=== PATIENT | male | born 1985 | race Caucasian/White ===

== ENCOUNTER 2019-10-28 11:52 | Inpatient (IN) | payer OTHER, SELFPAY ==
[2019-10-28] VITALS (14 sets, daily range): BP systolic 90–126; BP diastolic 43–92; PULSE 75–164; RESP 15–24; TEMP 36.6–36.7; O2SAT 95–99; BMI 41.1
--- NOTE | 2019-10-28 12:05 | ECG_ITS ---
Measurements Intervals [place] Rate: 174 P: SD: 0 QRS: 29 QRSD: 85 T: 185 QT: 275 QTc: 469 Interpretive Statements ATRIAL FIBRILLATION WITH RAPID VENTRICULAR RESPONSE LEFT VENTRICULAR HYPERTROPHY WITH ST-T CHANGE ST-T WAVE ABNORMALITY IN ANTEROLAT/LAT LEADS- CONSIDER ISCHEMIA ABNORMAL ECG Electronically Signed On 10-28-2019 15:20:42 PIPE BLANKS CUT OFF SAW OPERATOR by Remy Sanabria D.O.
--- NOTE | 2019-10-28 12:16 | ED.ARRPALP ---
HPI - Arrhythmia/Palpitations General Chief Complaint: Arrhythmia/Palpitations Stated Complaint: im in afibb Time Seen by Provider: 10/28/19 12:05 History of Present Illness HPI narrative: Pt is a 33 y/o male presenting to the ED c/o palpitations. 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 Pt states he has a Hx of A Fib and states he takes Metoprolol. Pt states he regularly takes his Metoprolol and last took a dose an hour ago when his Sx's presented. 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 Pt states he was admitted during his first occurrence of A Fib for 1 day and has never received Cardioversion to convert. Pt also reports mild CP describes as pressure, but denies dizziness or SOB. Pt states he is not currently on a blood thinner, but is taking low dose Aspirin. Pt denies having any other medical problems. Onset (ago): hour(s) (1) Arrhythmia history: atrial fibrillation Associated symptoms: chest pain (Mild) Treatments prior to arrival: beta-faith (Metoprolol) Related Data Home Medications Medication Instructions Recorded Confirmed metoprolol tartrate [Lopressor] 50 mg PO BID 10/28/19 10/28/19 montelukast [Singulair] 10 mg PO HS 10/28/19 10/28/19 pantoprazole [Protonix] 20 mg PO QAM 10/28/19 10/28/19 Allergies Allergy/AdvReac Type Severity Reaction Status Date / Time No Known Allergies Allergy Verified 10/28/19 12:04 Review of Systems Review of Systems: All systems reviewed & are unremarkable except as noted in HPI and below Cardiovascular: Cardiovascular: Reports chest pain and Reports palpitations Respiratory: Respiratory: Denies dyspnea Neurologic: Denies dizziness PMFSH Past Medical History Medical History A-fib GERD (gastroesophageal reflux disease) Surgical History Surgical History H/O hand surgery Rt History of tonsillectomy Social History Social History Smoking status: Current every day smoker Tobacco type: e-cigarettes Gender identity (if verbalized by the patient): Male Exam Const: General: healthy appearing, no acute distress and alert Nutritional Appearance: well nourished HENMT: Mouth: Yes lip normal Eyes: Conjunctivae: conjunctivae normal Resp: Effort & Inspection: normal respiratory effort Auscultation: wheezes (Scattered) Cardio: Rate: tachycardic Rhythm: abnormal rhythm (Irregularly irregular) Back/Spine/Pelvis: Other: Full ROM Skin: General skin exam: normal color Other: Warm; Dry Neuro: General: patient oriented x3 Speech: normal speech Extrem: General: full ROM Psych: Mental Status: mental status grossly normal Affect: normal affect Course Vital Signs Vital signs: Vital Signs Temperature 36.7 C 10/28/19 11:58 Pulse Rate 157 H 10/28/19 11:58 Respiratory Rate 22 H 10/28/19 11:58 Blood Pressure 126/68 10/28/19 11:58 Pulse Oximetry 98 10/28/19 11:58 Temperature 36.7 C 10/28/19 11:58 Pulse Rate 82 10/28/19 15:53 Respiratory Rate 18 10/28/19 15:53 Blood Pressure 97/43 L 10/28/19 15:53 Pulse Oximetry 98 10/28/19 15:53 MDM - Arrhythmia/Palpitations MDM Narrative Medical decision making narrative: EKG shows A-fib w/ RVR. given bolus of diltiazem and drip started. Rate moderately well controlled. Troponin elevated. Will plan for admission and cardiology consultation. Differential Diagnosis Differential diagnosis: Likely sinus tachycardia, artial fibrillation, artial flutter, supraventricular tachycardia and other (NSTEMI) Medical Records Attestation: I reviewed the patient's medical records. Lab Data Attestation: I reviewed the patient's lab results. Result diagrams: 10/28/19 12:06 10/28/19 12:06 Labs: Lab Results 10/28/19 10/28/1910/15
[2019-10-28 12:19] LABS: Basophils Percent Auto 0.3 % (0.2-1.2); Eosinophils Absolute Auto 0.2 K/mm3 (0-0.3); Eosinophils Percent Auto 1.7 % (0-4.4); Hematocrit 46.9 % (42.0-52.0); Hemoglobin 15.7 g/dL (14.0-18.0); Immature Granulocyte Absolute 0.05 K/mm3 (0.00-0.031); Immature Granulocyte Percent A 0.5 % (0-0.5); Lymphocytes Absolute Auto 2.74 K/mm3 (0.9-3.2); Lymphocytes Percent Auto 27.2 % (18.3-44.2); Mean Corpuscular HGB Conc 33.5 g/dl (32-36); Mean Corpuscular Hemoglobin 28.3 pg (26-34); Mean Corpuscular Volume 84.5 fl (80-100); Mean Platelet Volume 9.2 fl (7.4-10.4); Monocytes Absolute Auto 0.9 K/mm3 (0.1-0.6); Monocytes Percent Auto 8.8 % (2.6-8.5); Neutrophils Absolute Auto 6.2 K/mm3 (1.3-6.7); Neutrophils Percent Auto 61.5 % (45.5-73.1); Platelet Count Result 294 k/mm3 (150-375); Red Blood Count 5.55 M/mm3 (4.6-6.20); Red Cell Distribution Width 12.7 % (11.5-14.5); White Blood Count 10.1 K/mm3 (4.5-10.0)
[2019-10-28 12:32] LABS: Partial Thromboplastin Time 30.8 SECONDS (22.3-36.8); Prothrombin Time 12.6 Seconds (11.1-14.7)
[2019-10-28 12:39] LABS: Blood Urea Nitrogen 18 mg/dL (9-20); Calcium 9.4 mg/dL (8.4-10.2); Carbon Dioxide 29 mmol/L (22-30); Chloride 101 mmol/L (98-107); Estimated CRCL calculation 117 ml/min; Estimated Glomerular Filt Rate > 60; Glucose 96 mg/dL (75-110); Potassium 3.7 mmol/L (3.4-5.0); Sodium 142 mmol/L (137-145)
[2019-10-28 12:53] LABS: Troponin I 0.061 ng/mL (0.000-0.034)
[2019-10-28] MEDS: ASPIRIN 81 MG CHEWABLE TABLET 324 MG PO (12:57)
[2019-10-28] MEDS: SODIUM CHLORIDE 0.9% IV 1,000 ML 999 ML IV CONT (12:59)
[2019-10-28] MEDS: ENOXAPARIN 120 MG/0.8 ML SYRINGE SUB-Q (14:30)
--- NOTE | 2019-10-28 16:19 | ADMGEN ---
This patient, Antwan Downey, was admitted to IMU Room 214-01. Patient/family oriented to hospital policies and general routines including ID bracelet, bed and alarms, visiting hours, pain management, procedures, bathroom and other care routines, personal items, smoking policy, room service/diet, and visiting hours. Valuables list has been completed. Information on how to activate the Rapid Response Team has been discussed. Patient/Family are encouraged to report perceived risks to care and to ask questions if they do not understand what they are told or what they should do.
--- NOTE | 2019-10-28 16:21 | ECG_ITS ---
Measurements Intervals [place] Rate: 72 P: 42 UT: 181 QRS: 38 QRSD: 84 T: 179 QT: 411 QTc: 452 Interpretive Statements SINUS RHYTHM LEFT VENTRICULAR HYPERTROPHY AND ST-T CHANGE ST-T WAVE ABNORMALITY IN ANTEROLAT/LAT LEADS- CONSIDER ISCHEMIA ABNORMAL ECG Electronically Signed On 10-28-2019 17:16:28 VISITING HOUSEKEEPER by Remy Sanabria D.O.
--- NOTE | 2019-10-28 16:43 | PM.CNCAR ---
Assessment and Plan Additional Plan 33-year-old patient with paroxysmal atrial fibrillation likely triggered by untreated/partially treated sleep apnea. In addition to this the patient was having a stressful day at work and had not taken his beta-faith this morning. The patient had the idea that his evaluation and [facility] demonstrated as some sort of valvular abnormality. The records which I was able to fortunately review on the electronic record indicates normal appearing valve anatomy with trivial mitral and tricuspid regurgitant jets. His LV function was hyperdynamic. I would resume the metoprolol at the previous dosage of 50 mg daily He does not require systemic anticoagulation at age 33 with no structural cardiac abnormalities I will stop IV diltiazem since he is back in sinus rhythm If his 2nd troponin level is not significantly elevated I believe he can probably be allowed to go home since he is already back in sinus rhythm. It will be a good idea if he discontinues exposure to nicotine as well History of Present Illness History of Present Illness Consult date/time: Date of service: 10/28/19 16:43 Consult reason: atrial fibrillation Reason For Visit: afib w/rvr/elevated troponin Narrative: This is a 33-year-old man I am seeing at the request of the hospitalist because of atrial fibrillation. The patient is unknown to me prior to this encounter. 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 There was therefore a rather stressful environment he and he noticed at around late morning or possibly the new lower that he was having rapid irregular heart rhythms. The patient has a history of atrial fibrillation in the past and he recognized this as up probable recurrence. He was supposed to be taking metoprolol for this arrhythmia and remember that he did not take this morning's dose yet so he took the dose and sat down for a while hoping that it would resolve. With a did not he came over to this hospital's emergency room to be evaluated. He was found by ECG to be in AFib with RVR and of course was given intravenous diltiazem for rate control. As his heart rate came down a short time ago before he got up to the room in the intermediate care unit he felt that his cardiac rhythm normalized. On physical exam and on telemetry I as I came in to see him he is clearly in normal sinus rhythm. He is very comfortable at this time and has no other complaints. The patient indicated as stated above that he has a history of atrial fibrillation. This occurred in the summer he was hospitalized at [facility] and seen by the Cardiology practice up there. He describes having had an evaluation and was told that there was a enlarged valve of some sort in his heart. For that reason I looked on the electronic medical record and see that there is a transesophageal echo that was done in March of 2017 that demonstrated some left ventricular hypertrophy, normal appearing cardiac valves and trivial MR and TR. The patient also is significantly obese and states that at the time of his IA results of found to have sleep apnea. He had sleep studies and has a CPAP device that he is semi compliant with he states he sometimes does not use it every night and sometimes he finds himself feeling claustrophobic and take the mask off in the middle of the night. He is not and has not been anticoagulated a by his physicians. The ER physicians in addition to to diltiazem have given him subcutaneous Lovenox. The patient does not use any illicit substances he does have significant nicotine exposure with vaping in the occasional cigar. He has had an appendectomy and some hand surgery no other major operations. Review of Systems Constitutional: Constitutional: Reports no additional constitutional complaints Eyes: Eyes: Reports no additional eye complaints ENT: Reports system reviewed and no
[2019-10-28 17:01] LABS: Troponin I 0.174 ng/mL (0.000-0.034)
--- NOTE | 2019-10-28 17:39 | PM.IMHP ---
H&P: HPI History of Present Illness Chief complaint: afib w/rvr/elevated troponin Narrative: Antwan Downey is a 33 year old male patient that presented to the ED this afternoon with complaints of palpitations that started while he was a work earlier today. He has a history of atrial fibrillation and is on metoprolol for this condition. Patient converted to sinus rhythm prior to arrival to the floor. Patient has been started back on his metoprolol as per advice of cardiology. Patient reports that he takes his metoprolol as ordered and has not missed any doses. Patient reports his first episode of atrial fibrillation occured in March 2018 and he has not had another episode until today. He reports chest pain to the left side of his chest but denies radiation or shortness of breath. Patient normally follows with Dr. Schreiber for his atrial fibrillation but has not seen him in over a year. Patient denies cardioversion or ablation. Patient is also known to have sleep apnea but is noncompliant with his CPAP usage. Review of Systems Constitutional: Constitutional: Reports lethargy Comments: Generalized. Patient reports that he is always fatigued, but does not wear mask for sleep apnea as prescribed. Eyes: Eyes: Reports no additional eye complaints ENT: Reports nasal congestion Comments: Reports chronic nasal congestion. Patient follows with an ENT. Cardiovascular: Cardiovascular: Reports chest pain Comments: Reports chest pain to the left side of his chest with an onset of earlier today when he went into atrial fibrillation. Despite cardioverting, patient still has pain to the left side of his chest. Respiratory: Respiratory: Reports no additional respiratory complaints Gastrointestinal: Gastrointestinal: Reports no additional gastrointestinal complaints Genitourinary: Genitourinary: Reports no additional male genitourinary complaints Musculoskeletal: Musculoskeletal: Reports no additional musculoskeletal complaints Integumentary/Breasts: Skin/Breast: Reports system reviewed and no additional complaints, except as docu Neurologic: Reports system reviewed and no additional complaints, except as documented Psychiatric: Psychiatric: Reports anxiety Comments: Reports that he suffers from anxiety. Endocrine: Endocrine: Reports fatigue Comments: Reports a general fatigue. Hematologic/Lymphatic: Hematologic/Lymphatic: Reports no additional hematologic/lymphatic complaints Allergic/Immunologic: Allergic/Immunologic: Reports other Comments: Reports chronic allergies. [facility] Past Medical History Medical History (Updated 10/28/19 @ 18:01 by Tabitha Beasley NP) A-fib Allergic rhinitis GERD (gastroesophageal reflux disease) ADEEL on CPAP not compliant with c pap Surgical History Surgical History (Updated 10/28/19 @ 17:49 by Tabitha Beasley NP) H/O hand surgery Rt. 5th metacarpal. History of appendectomy History of tonsillectomy Family History Family History (Updated 10/28/19 @ 17:50 by Tabitha Beasley NP) Mother Heart disease Hypertension Cerebrovascular accident Acute myocardial infarction Social History Social History (Updated 10/28/19 @ 17:53 by Tabitha Beasley NP) Smoking status: Light tobacco smoker Tobacco type: e-cigarettes Second hand tobacco smoke exposure: No Additional smoking assessment comments: Patient smoked cigarettes for a few years, less than one PPD. Vaping now Alcohol intake: current Alcohol use details: Social. Has a few glasses of wine or mixed drinks every couple of weeks. Substance use: former Substance use type: marijuana Living arrangements: with friend(s) Additional living arrangements comments: Cohabiting with girlfriend. 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 Gender identity (if verbalized by the patient): Male Spiritual care concerns: No Agree to blood products: Yes
[2019-10-28 19:42] LABS: Troponin I 0.516 ng/mL (0.000-0.034)
[2019-10-28] MEDS: MONTELUKAST SODIUM 10 MG TABLET PO (21:03)
[2019-10-29] VITALS (11 sets, daily range): BP systolic 114–124; BP diastolic 50–60; PULSE 66–88; RESP 16–23; TEMP 36.1–36.9; O2SAT 97–98
[2019-10-29 04:41] LABS: Basophils Percent Auto 0.4 % (0.2-1.2); Eosinophils Absolute Auto 0.2 K/mm3 (0-0.3); Eosinophils Percent Auto 2.2 % (0-4.4); Hematocrit 41.2 % (42.0-52.0); Hemoglobin 13.5 g/dL (14.0-18.0); Immature Granulocyte Absolute 0.05 K/mm3 (0.00-0.031); Immature Granulocyte Percent A 0.7 % (0-0.5); Lymphocytes Absolute Auto 2.37 K/mm3 (0.9-3.2); Lymphocytes Percent Auto 31.1 % (18.3-44.2); Mean Corpuscular HGB Conc 32.8 g/dl (32-36); Mean Corpuscular Hemoglobin 27.7 pg (26-34); Mean Corpuscular Volume 84.4 fl (80-100); Mean Platelet Volume 9.2 fl (7.4-10.4); Monocytes Absolute Auto 0.7 K/mm3 (0.1-0.6); Monocytes Percent Auto 9.1 % (2.6-8.5); Neutrophils Absolute Auto 4.3 K/mm3 (1.3-6.7); Neutrophils Percent Auto 56.5 % (45.5-73.1); Platelet Count Result 232 k/mm3 (150-375); Red Blood Count 4.88 M/mm3 (4.6-6.20); Red Cell Distribution Width 12.6 % (11.5-14.5); White Blood Count 7.6 K/mm3 (4.5-10.0)
[2019-10-29 04:57] LABS: Alanine Aminotransferase 46 U/L (4-50); Albumin Level 3.7 g/dL (3.5-5.1); Alkaline Phosphatase 66 U/L (38-126); Aspartate Amino Transferase 33 U/L (17-59); Bilirubin,Total 0.4 mg/dL (0.2-1.3); Blood Urea Nitrogen 14 mg/dL (9-20); Calcium 8.6 mg/dL (8.4-10.2); Carbon Dioxide 26 mmol/L (22-30); Chloride 105 mmol/L (98-107); Estimated CRCL calculation 144 ml/min; Estimated Glomerular Filt Rate > 60; Glucose 108 mg/dL (75-110); Potassium 3.8 mmol/L (3.4-5.0); Sodium 139 mmol/L (137-145)
[2019-10-29 05:02] LABS: Amphetamine Screen Urine Negative (Negative); Barbiturate Screen Urine Negative (Negative); Benzodiazepines Screen Urine Negative (Negative); Cannabinoid Screen Urine Negative (Negative); Cocaine Screen Urine Negative (Negative); Methadone Screen Urine Negative (Negative); Opiate Screen Urine Positive (Negative); Phencyclidine Screen Urine Negative (Negative)
[2019-10-29 05:13] LABS: Troponin I 0.783 ng/mL (0.000-0.034)
[2019-10-29] MEDS: METOPROLOL SUCCINATE EXT REL 50 MG TABCR PO (09:04)
[2019-10-29] MEDS: PANTOPRAZOLE SOD SESQUIHYDRATE 20 MG TAB PO (09:05)
[2019-10-29] MEDS: ASPIRIN 81 MG CHEWABLE TABLET PO (09:08)
--- NOTE | 2019-10-29 11:06 | PM.PNCARD ---
Progress Note: A&P Additional Plan Patient is clinically stable. He is in sinus rhythm and back on his metoprolol. No cardiac reason he cannot be discharged Troponin level is attributable to his AF RVR ECG is significantly abnormal but appears to be consistent with left ventricular hypertrophy which was noted on his esophageal echo from [facility]. I do not believe this gentleman needs an ischemic workup at his young age in with the absence of ischemic symptomatology His intention is to follow-up with Dr. Reji Mary in [place] who has been his noodle maker Time Spent With Patient Time with patient: 15 - 25 minutes Subjective Date/time seen: Date of service: 10/29/19 11:06 Interval history: Follow-up visit for paroxysmal atrial fibrillation Patient asymptomatic this morning Discuss the results of his SUKHDEV from [facility] in some detail with the patient. There is no significant valvular pathology identified. It is therefore my opinion that his P AFib is the result of untreated/partially treated sleep apnea Exam Const: General: comfortable and no acute distress HENMT: Mouth: Yes moist mucous membranes Eyes: Sclera: sclerae normal Pupils: Equal, round and reactive pupils present Neck: Neck: supple and no JVD Thyroid: thyroid normal Resp: Effort & Inspection: normal respiratory effort Auscultation: clear to auscultation bilaterally Other: Breath sounds distant because of his size otherwise totally clear Cardio: Rate: regular rate Rhythm: regular rhythm Other: No murmur no gallop no rub Skin: General skin exam: normal color Neuro: Cognition (Neuro): normal cognition Extrem: General: normal to inspection Objective Data Vital Signs Vital Signs: Vital Signs - 24 hr 10/28/19 11:58 10/28/19 12:31 10/28/19 12:46 Temperature 36.7 C Pulse Rate 157 H 155 H 164 H Respiratory Rate 22 H 20 18 Blood Pressure 126/68 105/63 98/52 L Pulse Oximetry 98 96 96 10/28/19 13:01 10/28/19 13:06 10/28/19 13:46 Temperature Pulse Rate 153 H 143 H 138 H Respiratory Rate 18 18 15 Blood Pressure 119/92 H 119/71 123/76 Pulse Oximetry 97 95 10/28/19 14:31 10/28/19 15:53 10/28/19 16:31 Temperature 36.6 C Pulse Rate 120 H 82 77 Respiratory Rate 16 18 16 Blood Pressure 108/70 97/43 L 90/45 L Pulse Oximetry 98 98 99 10/28/19 17:52 10/28/19 19:34 10/28/19 20:00 Temperature 36.7 C Pulse Rate 80 82 91 Respiratory Rate 18 Blood Pressure 116/63 124/67 Pulse Oximetry 97 10/28/19 22:00 10/28/19 22:30 10/29/19 00:00 Temperature 36.9 C Pulse Rate 75 82 75 Respiratory Rate 24 H 20 Blood Pressure 114/58 L Pulse Oximetry 96 98 10/29/19 02:00 10/29/19 02:41 10/29/19 04:00 Temperature 36.1 C L Pulse Rate 73 84 70 Respiratory Rate 19 20 Blood Pressure 120/53 L Pulse Oximetry 98 98 10/29/19 04:45 10/29/19 06:00 10/29/19 08:00 Temperature Pulse Rate 88 68 70 Respiratory Rate 23 H Blood Pressure Pulse Oximetry 98 10/29/19 08:20 10/29/19 09:04 Temperature 36.2 C L Pulse Rate 78 82 Respiratory Rate 20 Blood Pressure 120/60 Pulse Oximetry 97 Intake/Output Intake/Output: Intake & Output 10/26/19 10/27/19 10/28/19 10/29/19 23:59 23:59 23:59 23:59 Intake Total 1600 1380 Output Total 650 Balance 1600 730 Meds/Results Medications: Active Medications Generic Name Dose Route Start Last Admin Trade Name Freq PRN Reason Stop Dose Admin Aspirin 81 mg 10/29/19 08:00 10/29/19 09:08 Aspirin Chewable PO 81 mg DAILY@0800 [facility] Administration Metoprolol Succinate 50 mg 10/29/19 09:00 10/29/19 09:04 Toprol Xl PO 50 mg QAM ASCENCION Administration Montelukast Sodium 10 mg 10/28/19 21:00 10/28/19 21:03 Singulair PO 10 mg HS ASCENCION Administration Morphine Sulfate 2 mg 10/28/19 18:04 Morphine Sulfate Inj IV PUSH Q4H PRN Pain Rated 7-10 Nitroglycerin 0.4 mg 10/28/19 18:04 Nitrostat Subl 0.4 M
--- NOTE | 2019-10-29 12:53 | PM.IMPN ---
Progress Note: A&P Assessment and Plan (1) Atrial fibrillation with rapid ventricular response: Code(s): I48.91 - Unspecified atrial fibrillation Status: Acute Assessment and Plan: Cardiology consulted and appreciate input. Patient with known paroxysmal atrial fibrillation. Now back in sinus rhythm. Telemetry reviewed on 10/29/2019 with sinus rhythm with heart rate controlled. Continue metoprolol. Will discharge home today as stable. Lovenox was given here for anticoagulation but no systemic anticoagulation recommended per Cardiology at discharge. (2) Chest pain: Qualifiers: Chest pain type: other chest pain Qualified Code(s): R07.89 - Other chest pain Code(s): R07.9 - Chest pain, unspecified Status: Acute Assessment and Plan: No ACS. Related to atrial fibrillation. Continue metoprolol. Follow-up with his regular shell trim tool setter as an outpatient. (3) Elevated troponin: Code(s): R79.89 - Other specified abnormal findings of blood chemistry Status: Acute Assessment and Plan: Serial troponin levels did increase to maximum of 0.783 earlier this morning. Appreciate help from cardiology. No ACS. Result of atrial fibrillation with RVR. Cardiology did review SUKHDEV done at [facility] with patient. He will follow-up with his regular shell trim tool setter, Dr. Mary, after discharge. (4) ADEEL on CPAP: Code(s): G47.33 - Obstructive sleep apnea (adult) (pediatric); Z99.89 - Dependence on other enabling machines and devices Status: Chronic Assessment and Plan: Encourage patient to use CPAP regularly as will help with cardiac issues. (5) Allergic rhinitis: Qualifiers: Allergic rhinitis trigger: unspecified Allergic rhinitis seasonality: unspecified Qualified Code(s): J30.9 - Allergic rhinitis, unspecified Code(s): J30.9 - Allergic rhinitis, unspecified Status: Chronic Assessment and Plan: Stable. Continue home montelukast. (6) DVT prophylaxis: Code(s): Z29.9 - Encounter for prophylactic measures, unspecified Status: Acute Assessment and Plan: Lovenox. Time Spent With Patient Time with patient: 15 - 25 minutes Subjective Date/time seen: 10/29/19 12:53 Interval history: Date of Service: 10/29/2019. Admitted with atrial fibrillation with RVR, chest pain and elevated troponin level. Feels better today. Occasional chest pain. No shortness of breath. No abdominal pain. and son present. Review of Systems Review of Systems: Narrative: Feeling better. Constitutional: Constitutional: Denies chills and Denies fever(s) ENT: Denies nasal congestion and Denies nasal discharge Cardiovascular: Cardiovascular: Reports chest pain (Occasional) and Denies lightheadedness Respiratory: Respiratory: Denies dyspnea Gastrointestinal: Gastrointestinal: Denies abdominal pain, Denies nausea and Denies vomiting Genitourinary: Genitourinary: Reports no additional male genitourinary complaints Musculoskeletal: Musculoskeletal: Reports no additional musculoskeletal complaints Integumentary/Breasts: Skin/Breast: Denies rash Neurologic: Denies headache(s) and Denies numbness Psychiatric: Psychiatric: Denies anxiety, Denies confusion and Denies depression Exam Narrative: Exam Narrative: Awake and alert. Const: General: no acute distress HENMT: Mouth: Yes moist mucous membranes Neck: Neck: supple Lymphatic: lymphadenopathy not noted Resp: Auscultation: clear to auscultation bilaterally, no rales and no wheezes Cardio: Rate: regular rate Rhythm: regular rhythm GI: Inspection: non-distended and obesity GI Palp: Yes Soft to palpation and No Tenderness to palpation present (GI) Auscultation: normal bowel sounds Skin: General skin exam: no rashes or lesions noted Neuro: Cognition (Neuro): normal cognition Speech: normal speech Extrem: General: no edema Psych: Mental Status: mental status
--- NOTE | 2019-10-29 12:58 | PM.DS ---
DS: Diagnosis Admitting Diagnosis Admitting Diagnosis: Unspecified atrial fibrillation Discharge Diagnosis (1) Atrial fibrillation with rapid ventricular response: Code(s): I48.91 - Unspecified atrial fibrillation Status: Acute Assessment and Plan: Cardiology consulted and appreciate input. Will discharge home today. (2) Chest pain: Qualifiers: Chest pain type: other chest pain Qualified Code(s): R07.89 - Other chest pain Code(s): R07.9 - Chest pain, unspecified Status: Acute (3) Elevated troponin: Code(s): R79.89 - Other specified abnormal findings of blood chemistry Status: Acute (4) ADEEL on CPAP: Code(s): G47.33 - Obstructive sleep apnea (adult) (pediatric); Z99.89 - Dependence on other enabling machines and devices Status: Chronic (5) Allergic rhinitis: Qualifiers: Allergic rhinitis trigger: unspecified Allergic rhinitis seasonality: unspecified Qualified Code(s): J30.9 - Allergic rhinitis, unspecified Code(s): J30.9 - Allergic rhinitis, unspecified Status: Chronic DS: Summary Hospital Course Reason for hospitalization: Palpitations. Hospital Course: Date of Service of Discharge: October 29, 2019. History of Present Illness: Patient is a 33-year-old with known history of paroxysmal atrial fibrillation on metoprolol who presented to the emergency room with complaint of palpitations starting earlier at work. Patient does has significant stress at work. No recent change in medication. He reports having chest pain to the left of his chest but no radiation. No shortness of breath. No recent fever, sweats or chills. No abdominal pain, nausea or vomiting. He does see Dr. Usman kang Loomis regularly for cardiology but has not seen him in over 1 year. He does have known sleep apnea but is noncompliant with CPAP. In the emergency room, he was noted to have atrial fibrillation with RVR. He was placed on IV diltiazem. Cardiology was consulted. Patient was admitted for further evaluation and treatment. Course in Hospital: Patient was placed in the IMU on admission where he remained for the duration of his stay. As noted, he was started on IV diltiazem in the emergency room but converted to sinus rhythm prior to arrival to the IMU. He was seen by Cardiology with IV diltiazem discontinued and started on home dosage of oral metoprolol. Patient was given Lovenox here but no plan for systemic anticoagulation due to age and no structural cardiac abnormalities. He was continued to be monitored throughout his stay remaining in a sinus rhythm. Initial chest pain did improve and was only occasional by the time of discharge. Serial troponin levels were evaluated with increasing levels up to 0.783 but no findings on EKG suggestive of ACS. Elevated troponin levels were attributed to his atrial fibrillation with RVR. EKG did have changes consistent with left ventricular hypertrophy which was noted on his transesophageal echo done at [facility]. No ischemic workup was felt to be necessary. Patient was continued on CPAP during his stay. He was counseled on the need to use his CPAP regularly. Blood pressure was monitored and stable. He had no difficulties with his allergies or acid reflux. With the patient stable, he was discharged home on October 29, 2019. Status at Discharge Cognitive/behavioral status at discharge: Stable. Functional status at discharge: independent ambulation Overall status at discharge: patient is back to baseline Time Spent with Patient Time attestation: Total time spent providing and/or coordinating discharge services: 35 minutes. Time spent: Greater than 30 minutes Exam Narrative: Exam Narrative: Vital Signs Temp Pulse Resp BP Pulse Ox 98.1 F 157 H 22 H 126/68 98 10/28/19 11:58 10/28/19 1
== END 2019-10-29 13:44 | disposition home or self-care (01) | DRG 310 ==
LOC: ANHED 14:28 → ANHIMU 15:09
PROVIDERS: Nurse Practitioner; Admitting Provider Hospitalist; Emergency Provider Emergency Medicine; Visit Provider Hospitalist
DX: I48.0 Paroxysmal atrial fibrillation (principal); Z91.19 Patient's noncompliance with other medical treatment and regimen; K21.9 Gastro-esophageal reflux disease without esophagitis; G47.33 Obstructive sleep apnea (adult) (pediatric); F17.290 Nicotine dependence, other tobacco product, uncomplicated; J30.9 Allergic rhinitis, unspecified
CPT/HCPCS: 36415; 80048; 80053; 80307; 83735; 84443; 84484; 85025; 85610; 85730; 93005; 96365; 96366; 96372; 99285; A9270; J1650; J7030

== ENCOUNTER 2021-06-19 16:32 | Emergency (ER) | payer OTHER, SELFPAY ==
--- NOTE | 2021-06-19 16:47 | ED.WOUNDLAC ---
HPI - Wound/Laceration General Chief Complaint: Wound/Laceration Stated Complaint: FINGER LACERATION Source: patient and RN notes reviewed Mode of arrival: ambulatory Limitations: no limitations History of Present Illness HPI narrative: This is a 35-year-old man who has a laceration on the right second finger. There is a skin avulsion on the distal posterior second finger . Patient was cutting prime rib and a nice sliced his finger he came in wrapped with gauze no other OTC treatment prior to arrival. The incident occurred approximately 10 minutes prior to arrival he left work and came straight here. Patient states he had a tetanus shot 1 year ago. Related Data Home Medications Medication Instructions Recorded Confirmed aspirin [Aspir-81] 81 mg PO DAILY 10/28/19 10/28/19 montelukast [Singulair] 10 mg PO HS 10/28/19 10/28/19 pantoprazole [Protonix] 20 mg PO QAM 10/28/19 10/28/19 Allergies Allergy/AdvReac Type Severity Reaction Status Date / Time No Known Allergies Allergy Verified 10/28/19 12:04 Review of Systems Review of Systems: CONSTITUTIONAL: Denies body aches, fever, chills, or sweats. EYES: Denies visual changes, redness, or discharge. ENT: Denies rhinorrhea, congestion, sore throat, or otalgia. CARDIOVASCULAR: Denies chest pain, palpitations, or edema. RESPIRATORY: Denies cough or dyspnea. GASTROINTESTINAL: Denies abdominal pain, nausea, vomiting, or diarrhea. GENITOURINARY: Denies dysuria or hematuria. SKIN: right second finger laceration MUSCULOSKELETAL: Denies back pain, joint pain, or myalgia. NEUROLOGIC: Denies headache, numbness, tingling, or weakness. PSYCH: Denies depression or anxiety. All systems reviewed & are unremarkable except as noted in HPI and below PMFSH Past Medical History Medical History A-fib Allergic rhinitis GERD (gastroesophageal reflux disease) ADEEL on CPAP not compliant with c pap Surgical History Surgical History H/O hand surgery Rt. 5th metacarpal. History of appendectomy History of tonsillectomy Family History Family History Mother Heart disease Hypertension Cerebrovascular accident Acute myocardial infarction Social History Social History Smoking status: Light tobacco smoker Tobacco type: e-cigarettes/vaping Second hand tobacco smoke exposure: No Additional smoking assessment comments: Patient smoked cigarettes for a few years, less than one PPD. Vaping now Alcohol intake: current Alcohol use details: Social. Has a few glasses of wine or mixed drinks every couple of weeks. Substance use: former Substance use type: marijuana Additional living arrangements comments: Cohabiting with girlfriend. 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 Gender identity (if verbalized by the patient): Male Spiritual care concerns: No Agree to blood products: Yes Comments At time of signature, I have reviewed and agree with nursing past medical, surgical, social and family history unless otherwise noted. Please see nursing chart for further information. There is no relevant family history pertinent to the presenting complaint Exam Narrative: GENERAL: Well-appearing, well-nourished, and in no acute distress. HEAD: Normocephalic, atraumatic. EYES: EOMI. No redness or drainage. Conjunctivae normal. ENT: Mucous membranes pink and moist. Nares clear. No rhinorrhea. NECK: Normal AROM. Supple. MUSCULOSKELETAL: No bony tenderness. EXTREMITIES: Right second finger skin avulsion to posterior distal finger tip. SKIN: Warm, dry, no rash. Capillary refill normal. Normal skin turgor. NEURO: No focal deficits. Alert and oriented x3. Gait steady. PSYCH: Normal affect. No signs of depression
== END 2021-06-19 17:05 | disposition home or self-care (01) ==
PROVIDERS: Emergency Provider Nurse Practitioner Family
DX: S61.200A Unspecified open wound of right index finger without damage to nail, initial encounter (principal); W29.0XXA Contact with powered kitchen appliance, initial encounter; Y99.0 Civilian activity done for income or pay; I48.91 Unspecified atrial fibrillation; K21.9 Gastro-esophageal reflux disease without esophagitis; G47.33 Obstructive sleep apnea (adult) (pediatric); Z91.19 Patient's noncompliance with other medical treatment and regimen; F17.200 Nicotine dependence, unspecified, uncomplicated
CPT/HCPCS: 99212; G0463